=== PATIENT | female | born 1990 | race Caucasian/White ===

== ENCOUNTER 2025-05-30 13:01 | Emergency (ER) | payer MEDICAID, SELFPAY ==
[2025-05-30 13:02] VITALS: BP 114/69; PULSE 81; RESP 16; TEMP 36.8; O2SAT 99; BMI 21.7
--- NOTE | 2025-05-30 13:43 | ED.RN ---
Patient provided with a snack per patient request
--- NOTE | 2025-05-30 14:19 | ED.RN ---
Patient back to nurses station requesting another snack and some juice at this time. Meal tray ordered with juice and dessert request. Patient informed of meal tray ordered at this time.
--- NOTE | 2025-05-30 14:29 | ED.RN ---
Patient provided with meal tray at this time with cookies
--- NOTE | 2025-05-30 14:58 | EX.ED.VIS.PS ---
HPI HPI - Psych History of Present Illness Chief Complaint: Mental Health Narrative Narrative: Chief complaint and HPI: 35-year-old female with past medical history of schizoaffective disorder was pink slipped by the assisted after release for concerns of hallucinations. [place] slip states that the patient appears to be hearing and seeing things when speaking with assisted staff. Crisis recommended her being evaluated in the emergency department. Patient states that she was talking to herself at the assisted out loud but she denies any visual or auditory hallucinations. She denies any suicidal or homicidal ideation. States that she is currently on medication for her schizoaffective disorder and feels that it is working. Patient states that she has a safe place to discharge home too. Review of systems: See HPI Medications: As listed on the chart Allergies: As listed on the chart PFSH: Per chart Vital signs: As listed on the chart. Reviewed. Physical exam: Gen: A&O x3, NAD Head: Normocephalic, atraumatic Eyes: No sclera icterus, conjunctiva clear, PERRL ENT: Moist mucous membranes CV: RRR, no murmurs Resp: Lungs CTA BL, no w/r/c GI: Abd soft, non-distended, non-tender, no r/r/g Musc: Full ROM, no deformity Skin: Warm, dry Psych: Cooperative, appropriate mood and affect, does not appear internally stimulated, not paranoid [facility] Medical History (Updated 05/30/25 @ 15:[address] Boyd Rey, DO) Schizo affective schizophrenia Depression Home Medications ?Medication ?Instructions ?Recorded ?Last Taken ?Type gabapentin 400 mg capsule 400 mg PO BREAKFAST 04/16/16 Unknown History gabapentin 800 mg tablet 800 mg PO QHS 04/16/16 Unknown History quetiapine 100 mg tablet 100 mg PO DAILY 04/16/16 Unknown History Allergy/AdvReac Type Severity Reaction Status Date / Time ceftriaxone (From Rocephin) Allergy Rash Verified 05/30/25 13:06 Penicillins Allergy Rash Verified 05/30/25 13:06 Social History Smoking Status: Current every day smoker tobacco type: cigarettes EXAM Physical Exam Const Vital Signs: 05/30/25 13:02 05/30/25 15:18 05/30/25 15:23 Temperature 98.2 F 98.2 F Temperature Source Oral Pulse Rate 81 81 91 Respiratory Rate 16 16 17 Blood Pressure 114/69 114/69 108/79 Blood Pressure Mean 84 84 88 Pulse Ox 99 99 100 Oxygen Delivery Method Room Air Room Air MDM MDM MDM Narrative Medical decision making narrative: 35-year-old female with past medical history of schizoaffective disorder was pink slipped by the assisted after release for concerns of hallucinations. [place] slip states that the patient appears to be hearing and seeing things when speaking with assisted staff. Crisis recommended her being evaluated in the emergency department. Patient states that she was talking to herself at the assisted out loud but she denies any visual or auditory hallucinations. She denies any suicidal or homicidal ideation. States that she is currently on medication for her schizoaffective disorder and feels that it is working. Patient states that she has a safe place to discharge home too. Physical exam and vitals are unremarkable. Patient does not appear internally stimulated. She is not currently in psychosis or paranoia. She denies any homicidal or suicidal ideation. At this point in time, I do not see any requirement for a pink slip. Social work was consulted. They spoke with the patient as well. Agree with discharge home. Follow-up outpatient. Patient discharged home. Impression: 1. Mental health concern 2. History of schizoaffective disorder Discharge Plan Triage Chief Complaint: Mental Health ED Provider: Boyd Rey Dx/Rx/DC Orders Clinical Impression: Mental health disorder Instructions: ED Schizoaffective Disorder Prescriptions: No Action gabapentin 400 MG capsule 400 mg PO BREAKFAST quetiapine 100 MG tablet 100 mg PO DAILY gabapentin 800 MG tablet 800 mg PO QHS Primary Care Provider: Care Physician,No Primary Referrals: Kevon Soto MD [Med Staff - Active Staff, Family Practice] - 3-5 Days Activity Restrictions/Additional Instructions: Follow-up with primary care physician as needed. Return back to ED if symptoms change or worsen. Continue to take your medicine. If you need a primary care provider see the one listed above Print Language: Irish Disposition Disposition: Home, Self Care Discharge Date/Time: 05/30/25 15:23
--- NOTE | 2025-05-30 14:58 | ED.RN ---
Patient noted to be pacing room in corner and speaking to self. Patient requesting her clothes.
[2025-05-30 15:18] VITALS: BP 114/69; PULSE 81; RESP 16; TEMP 36.8; O2SAT 99
[2025-05-30 15:23] VITALS: BP 108/79; PULSE 91; RESP 17; O2SAT 100
--- NOTE | 2025-05-30 18:43 | CM.ED ---
Social Work Psychiatric Assessment Reason for consult: mental health Informant(s): ?patient, mental health worker from [facility], police, medical record Chief Complaint: ?Patient was brought to ED for a mental health assessment by police after being released from [facility]. ?Patient had been assessed last week by crisis due to patient experiencing auditory hallucinations, was unable to participate in conversation, making delusional statements.? Crisis attempted to get patient to [facility] at that time but was unable to get a bed so patient remained in [facility].?? Patient was released today and ER was asked to assess patient on this date. Patient stated she was not responding to internal stimuli, that she talks to herself and has done so her entire life. Patient also stated when she was assessed the first time, she had gone several days without sleep and that usually affects her mental health.? ?When staff were not present, patient was heard making statements that appeared as if she were conversing with an unseen persons and was pacing the ER room.? Despite this, patient was able to participate in assessment, was able to answer questions appropriately, denied suicidal or homicidal ideations, denies auditory or visual hallucinations, did not make any delusional statements, denies sleep or appetite disturbance.? Patient states she is on an antipsychotic injection and feels she is doing well with the medication.?? Marital/Social History: ?patient is a single 35 year old female Living Situation: ?patient is homeless, was at an inpatient psychiatric hospital, then went to [facility] before being incarcerated for about a week.?? Support/Resources: mom, sister, aunt, uncle, dad History: None Education and Employment History: patient got her GED when she was 17.? 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 History of Abuse (physical/sexual/verbal/emotional): denies Substance Abuse Current/Historical: ?patient reports to recent alcohol detox, states uses illicit drugs occasionally Risk to Self/Others: ? Suicidal (thought/plan/intent/attempt): denies ? Access to Lethal Means: n/a ? Homicidal (thought/plan/intent/attempt): denies ? History of Violence (self/others/objects): n/a Mental Status Exam: ??? Orientation: alert and oriented x 3 ??? Memory: ?intact Appearance/General Behavior: ?patient had a difficult time siting still, did make eye contact and was able to participate in assessment without concerns Mood/Affect: ?patient was anxious, elevated Communication Pattern: responds to questions, denies A/V hallucinations however patient was talking to self or possibly responding to internal stimuli when SW not in room.? Thought Process: ?appropriate General Intellectual Functioning: average Judgment: fair Insight: ?fair Plan: ?Patient was discharged from [facility] and brought to ED for assessment. Patient denied suicidal or homicidal ideations, denied auditory or visual hallucinations, did not state any delusional thoughts, ?was able to follow conversation and respond appropriately.? Patient was pacing room when not engaged with staff, when asked about this, patient stated that she had a lot of energy and needed to move.?? When asked about patient appearing to be responding to internal stimuli, patient again denied stating she just talks to herself. ?SW worked with patient on discharge planning.?? SW stayed with patient while she attempted to call her mom, patient called several times with no answer.? Patient then attempted to contact sister, sister did answer phone but was unable to garbage pick up man patient. SW called [facility] who stated they did have beds available tonight.? SW confirmed that patient had money to use [employer] [facility], showed patient where the [employer] bus picked up by the hospital, and the time that bus would be passing by hospital. ?Patient was given name and address of [facility]. ??Patient comfortable with plan.?? Angie Parks, FEATHER STITCHER, BOARDER MACHINE
== END 2025-05-30 15:23 | disposition home or self-care (01) ==
PROVIDERS: Emergency Provider Surgery; Visit Provider Surgery
DX: F25.9 Schizoaffective disorder, unspecified (principal); F32.A Depression, unspecified; Z79.899 Other long term (current) drug therapy; F17.210 Nicotine dependence, cigarettes, uncomplicated
CPT/HCPCS: 99282